=== PATIENT | male | born 1980 | race Caucasian/White ===

== ENCOUNTER 2019-07-23 19:18 | Emergency (ER) | payer SELFPAY ==
[~2019-07-23] VITALS: Ht 162.6 cm; Wt 63.5 kg
[2019-07-23 19:36] VITALS: Ht 162.6 cm; Wt 63.5 kg
[2019-07-23 22:07] VITALS: BP 98/66
== END 2019-07-23 20:00 | disposition other institution (70) ==
LOC: ED 19:18
DX: S51.811A Laceration without foreign body of right forearm, initial encounter (principal); S61.412A Laceration without foreign body of left hand, initial encounter; W22.8XXA Striking against or struck by other objects, initial encounter; Y93.89 Activity, other specified; Y92.89 Other specified places as the place of occurrence of the external cause; Y99.8 Other external cause status
CPT/HCPCS: 90715; J2001; Q0092

== ENCOUNTER 2019-07-23 19:18 | Emergency (ER) | payer OTHER | END 2019-07-23 20:00 | disposition other institution (70) | LOC: ED 19:18 | DX: Z02.89 Encounter for other administrative examinations (principal) ==